=== PATIENT | female | born 1985 | race Caucasian/White ===

== ENCOUNTER 2017-09-25 18:24 | Emergency (ER) | payer OTHER ==
[~2017-09-25] VITALS: Ht 165.1 cm; Wt 79.4 kg
[~2017-09-25 18:24] MED LIST: ALBU90OI6 INH; ALLEGRA OTC; ALPR.5 PO; ALPR1 PO; AMOX500 PO; Amoxicillin500 MG PO; CEPH500 PO; CLON.5 PO; CYCL10 PO; Cleocin HCl300 MG PO; DULO30; DULO30 PO; GUAPHELA PO; HYDACE10B PO; HYDACE5 PO; IBUP200 PO; IBUP600 PO; IBUP800 PO; KETO10 PO; METPRE4DP PO; NAPR500 PO; NAPR550 PO; ONDA8ODT MM; OXYACE5T PO; OXYC10TA19 PO; PARO20 PO; PENVK250 PO; PRED20 PO; Peridex480 ML SS; QUET100 PO; RXCYCL10 PO; RXSULTRIDS PO; RXTRAM50 PO; SERT25; SULTRIDS PO; SUMA25 PO; TOPI25; TRAM50 PO; Ultram50 MG PO; Veetids 500500 MG PO; Zithromax250 MG PO
[2017-09-25] MEDS ORDERED: SUMATRIPTAN (18:34)
[2017-09-25] MEDS ORDERED: SUBOXONE 12 MG1 EACH (18:34)
[2017-09-25] MEDS ORDERED: METCAR500 PO (18:34)
[2017-09-25] MEDS ORDERED: Amoxicillin500 MG PO (19:44)
== END 2017-09-25 19:53 | disposition home or self-care (01) ==
LOC: ER 18:24
DX: K04.7 Periapical abscess without sinus (principal); Z79.899 Other long term (current) drug therapy; F41.9 Anxiety disorder, unspecified; F31.9 Bipolar disorder, unspecified; F32.9 Major depressive disorder, single episode, unspecified; Z87.891 Personal history of nicotine dependence
CPT/HCPCS: 99282

== ENCOUNTER 2017-10-19 18:12 | Emergency (ER) | payer OTHER ==
[~2017-10-19] VITALS: Ht 157.5 cm; Wt 97.5 kg
[~2017-10-19 18:12] MED LIST changes: +METCAR500 PO; +SUBOXONE 12 MG1 EACH; +SUMATRIPTAN
[2017-10-19] MEDS ORDERED: Cleocin HCl300 MG PO (19:04)
== END 2017-10-19 19:12 | disposition home or self-care (01) ==
LOC: ER 18:12
DX: K04.7 Periapical abscess without sinus (principal); F31.9 Bipolar disorder, unspecified; F41.9 Anxiety disorder, unspecified; Z79.899 Other long term (current) drug therapy; Z87.891 Personal history of nicotine dependence
CPT/HCPCS: 99282

== ENCOUNTER → 2019-10-20 | Outpatient (CLI) | payer OTHER ==
[2019-10-22 15:09] LABS: HPV 16 Negative (Negative); HPV 18 Negative (Negative); HPV OTHER HR TYPES Negative (Negative)
== END | disposition home or self-care (01) ==
LOC: LAB SHORT 17:15 → LAB SRC 17:15
PROVIDERS: Nurse Practitioner Family
DX: Z12.4 Encounter for screening for malignant neoplasm of cervix (principal)
CPT/HCPCS: 87624; G0123

== ENCOUNTER 2020-06-02 11:51 | Emergency (ER) | payer OTHER ==
[~2020-06-02] VITALS: Ht 154.9 cm; Wt 90.3 kg
[2020-06-02 13:00] LABS: BASOPHILS ABSOLUTE AUTO 0.04 K/mm3 (0.00-0.23); BASOPHILS PERCENT AUTO 1 % (0-2); EOSINOPHILS ABSOLUTE AUTO 0.09 K/mm3 (0.00-0.68); EOSINOPHILS PERCENT AUTO 1 % (0-6); Hematocrit 43.3 % (33.0-51.0); Hemoglobin 14.8 g/dL (11.5-16.0); IMMATURE GRAN ABSOLUTE AUTO 0.04 K/mm3 (0.00-0.10); IMMATURE GRAN PERCENT AUTO 1 % (0-1); LYMPHOCYTES ABSOLUTE AUTO 2.15 K/mm3 (0.84-5.20); LYMPHOCYTES PERCENT AUTO 24 % (21-46); MONOCYTES ABSOLUTE AUTO 0.61 K/mm3 (0.16-1.47); MONOCYTES PERCENT AUTO 7 % (4-13); Mean Corpuscular HGB 28.1 pg (26.0-34.0); Mean Corpuscular HGB Conc 34.2 g/dL (31.5-36.5); Mean Corpuscular Volume 82 fL (80-100); Mean Platelet Volume 8.2 fL (9.1-12.4); NEUTROPHILS PERCENT AUTO 67 % (41-73); Platelet Count 351 K/mm3 (150-400); RDW Coefficient Variation 12.1 % (11.7-14.2); RDW Standard Deviation 36.8 fL (35.1-46.3); Red Blood Cell Count 5.26 M/mm3 (3.80-5.20); White Blood Cell Count 8.83 K/mm3 (4.00-11.30)
[2020-06-02 13:27] LABS: Alanine Aminotransfer (ALT/SGP 17 U/L (12-78); Albumin, Blood 3.3 g/dL (3.4-5.0); Albumin/Globulin Ratio 0.8 (0.8-1.8); Alk Phos 93 U/L (50-136); Anion Gap 5 mmol/L (6-16); Aspartate Aminotrans (AST/SGOT 9 U/L (12-37); Bilirubin, Total 0.4 mg/dL (0.1-1.0); Blood Urea Nitrogen 15 mg/dL (8-24); Bun/Creatinine Ratio 22.8 (12.0-20.0); CO2, Blood 28 mmol/L (21-32); Calcium, Blood 8.9 mg/dL (8.5-10.1); Chloride, Blood 106 mmol/L (98-108); Creatinine, Blood 0.66 mg/dL (0.40-1.00); Glomerular Filtration Rate >60 (60-); Glucose, Blood 99 mg/dL (70-99); Sodium, Blood 139 mmol/L (136-145); Total Protein, Blood 7.3 g/dL (6.4-8.2)
[2020-06-02] MEDS ORDERED: ONDA4ODT SL (16:35)
[2020-06-02] MEDS ORDERED: MOTION RELIEF25 MG PO (16:35)
[2020-06-02] MEDS ORDERED: IBUP400 PO (16:35)
[2020-06-02] MEDS ORDERED: Amitriptyline H10 MG PO (17:23)
[2020-06-02] MEDS ORDERED: ZANAFLEX4 M4 PO (17:23)
[2020-06-02] MEDS ORDERED: RIZATRIPTAN PO (17:23)
== END 2020-06-02 16:50 | disposition home or self-care (01) ==
LOC: ER 11:51
PROVIDERS: Physician Assistant
DX: R42 Dizziness and giddiness (principal); Z88.8 Allergy status to other drugs, medicaments and biological substances; Z79.899 Other long term (current) drug therapy; Z87.891 Personal history of nicotine dependence
CPT/HCPCS: 36415; 80053; 85025; 99284-25

== ENCOUNTER → 2022-02-15 | Outpatient (CLI) | payer BC, OTHER ==
[~2022-02-15] MED LIST changes: +Amitriptyline H10 MG PO; +IBUP400 PO; +MOTION RELIEF25 MG PO; +ONDA4ODT SL; +RIZATRIPTAN PO; +ZANAFLEX4 M4 PO
== END | disposition home or self-care (01) ==
LOC: LAB 16:41 → LAB SHORT 16:41
DX: N39.0 Urinary tract infection, site not specified (principal)
CPT/HCPCS: 87086

== ENCOUNTER 2024-11-09 17:03 | Emergency (ER) | payer OTHER ==
[~2024-11-09] VITALS: Ht 157.5 cm; Wt 63.5 kg
[~2024-11-09 17:03] MED LIST changes: +METFORMIN HCL500 M2 PO; +OMEP20ER PO; +OZEMPIC0.25 MG/02 SC; +VENL150ER PO; +VENLAFAXINE HCL75 M1 PO
[2024-11-09 18:11] LABS: BASOPHILS ABSOLUTE AUTO 0.04 K/mm3 (0.00-0.23); BASOPHILS PERCENT AUTO 1 % (0-2); EOSINOPHILS ABSOLUTE AUTO 0.03 K/mm3 (0.00-0.68); EOSINOPHILS PERCENT AUTO 0 % (0-6); Hematocrit 36.8 % (33.0-51.0); Hemoglobin 12.7 g/dL (11.5-16.0); IMMATURE GRAN ABSOLUTE AUTO 0.03 K/mm3 (0.00-0.10); IMMATURE GRAN PERCENT AUTO 0 % (0-1); LYMPHOCYTES ABSOLUTE AUTO 2.42 K/mm3 (0.84-5.20); LYMPHOCYTES PERCENT AUTO 29 % (21-46); MONOCYTES ABSOLUTE AUTO 0.66 K/mm3 (0.16-1.47); MONOCYTES PERCENT AUTO 8 % (4-13); Mean Corpuscular HGB Conc 34.5 g/dL (31.5-36.5); Mean Corpuscular Volume 88 fL (80-100); NEUTROPHILS ABSOLUTE AUTO 5.30 K/mm3 (1.96-9.15); NEUTROPHILS PERCENT AUTO 62 % (41-73); NRBC ABSOLUTE 0.00 K/mm3 (0.00-0.02); NRBC Auto 0.0 /100 WBC (0.0-0.2); Platelet Count 443 K/mm3 (150-400); RDW Coefficient Variation 13.5 % (11.7-14.2); RDW Standard Deviation 43.4 fL (35.1-46.3)
[2024-11-09 18:30] LABS: Prothrombin Time Results 11.0 Sec (9.7-11.5)
[2024-11-09 18:38] LABS: Alanine Aminotransfer (ALT/SGP 16.0 U/L (12-78); Albumin, Blood 3.5 g/dL (3.4-5.0); Albumin/Globulin Ratio 1.0 (0.8-1.8); Anion Gap 9.0 mmol/L (3-11); Aspartate Aminotrans (AST/SGOT 11.0 U/L (12-37); Bilirubin, Total 0.8 mg/dL (0.1-1.0); Blood Urea Nitrogen 8.0 mg/dL (8-24); CO2, Blood 28.0 mmol/L (21-32); Calcium, Blood 9.3 mg/dL (8.5-10.1); Chloride, Blood 102.0 mmol/L (98-108); Creatinine, Blood 0.8 mg/dL (0.40-1.00); Globulin, Blood 3.5 g/dL (2.2-4.0); Glucose, Blood 78.0 mg/dL (70-99); Potassium, Blood 3.6 mmol/L (3.5-5.5); Sodium, Blood 135.0 mmol/L (136-145); Total Protein, Blood 7.0 g/dL (6.4-8.2)
[2024-11-09 20:04] VITALS: BP 132/87
== END 2024-11-09 20:05 | disposition home or self-care (01) ==
LOC: ER 17:03
PROVIDERS: Student in an Organized Health Care Education/Training Program
DX: R23.0 Cyanosis (principal); F41.9 Anxiety disorder, unspecified; F32.A Depression, unspecified; Z88.8 Allergy status to other drugs, medicaments and biological substances; Z79.84 Long term (current) use of oral hypoglycemic drugs; Z79.899 Other long term (current) drug therapy; Z87.891 Personal history of nicotine dependence
CPT/HCPCS: 80053; 85025; 85610; 85730; 93005; 93010; 99283-25

== ENCOUNTER → 2025-01-19 | Outpatient (CLI) | payer OTHER ==
[2025-01-19 16:05] LABS: Bacterial Vaginosis PCR Negative (NEGATIVE); Candida glabrata-krusei, PCR NOT DETECTED (NOT DETECT)
[2025-01-19 16:13] LABS: Candida Group, PCR DETECTED (NOT DETECT)
== END ==
LOC: LAB 13:52 → LAB SHORT 13:52
PROVIDERS: Family Medicine
DX: B37.31 Acute candidiasis of vulva and vagina (principal)
CPT/HCPCS: 81515